=== PATIENT | male | born 1965 | race Caucasian/White ===

== ENCOUNTER 2017-12-21 23:43 | Emergency (ER) | payer BC ==
[~2017-12-21] VITALS: Ht 172.7 cm; Wt 97.5 kg
[~2017-12-21 23:43] MED LIST: AMARIL; AVAPRO150 MG; KETO10TA2 PO; METFORMIN HCL1000 MG; SYNTHROID50 MCG
[2017-12-22] MEDS ORDERED: NOVOLOG FL100 UNIT/1 (00:01)
[2017-12-22] MEDS ORDERED: NORFLEX100MG PO (03:36)
[2017-12-22] MEDS ORDERED: KETO10TA2 PO (03:36)
== END 2017-12-22 03:46 | disposition home or self-care (01) ==
LOC: ER 23:43
DX: R20.2 Paresthesia of skin (principal)